=== PATIENT | male | born 2000 | race Two or more races ===

== ENCOUNTER 2024-08-01 05:00 | Emergency (ER) | payer MEDICAID, SELFPAY ==
[2024-08-01 05:01] VITALS: BMI 24.9
[2024-08-01 05:07] VITALS: BP 130/75; PULSE 78; RESP 17; TEMP 36.9; O2SAT 97
--- NOTE | 2024-08-01 05:18 | PD.EDRME ---
Rapid Medical Screening Exam RME Arrival date/time: 08/01/24 05:00 24M with no significant PMH presents to ED with 2 days of generalized itchy rash and R ear drum rupture (confirmed on exam). Patient denies new meds, foods, and hygiene products. Patient does work in the vit[employer], but denies working with chemicals or recent encounter with pesticides. There is also some facial swelling, but patient denies SOB and throat swelling. Chief Complaint: Ear Vital signs: Vital Signs Temperature 98.4 F 08/01/24 05:07 Pulse Rate 78 08/01/24 05:07 Respiratory Rate 17 08/01/24 05:07 Blood Pressure 130/75 08/01/24 05:07 Pulse Oximetry (%) 97 08/01/24 05:07 Oxygen Delivery Method Room Air 08/01/24 05:07
[2024-08-01] MEDS: DiphenhydrAMINE 25 MG CAPSULE PO (05:40)
[2024-08-01] MEDS: FAMOTIDINE 20 MG TABLET PO (05:40)
[2024-08-01] MEDS: DEXAMETHASONE SOD PHOS INJ 10 MG/ML VIAL PO (05:41)
[2024-08-01 06:25] LABS: Basophils % (Auto) 0 % (0-2.5); Eosinophils # (Auto) 0.1 Thou/mm3 (0.0-0.5); Eosinophils % (Auto) 1 % (0-10); Hematocrit 45.1 % (41.0-53.0); Hemoglobin 16.6 g/dL (13.5-16.0); Immature Granulocytes % (Auto) 0 % (0-0); Immature Granulocytes Auto 0.02 Thou/mm3 (0.00-0.00); Lymphocytes # (Auto) 1.8 Thou/mm3 (1.0-4.8); Lymphocytes % (Auto) 21 % (10-50); Mean Corpuscular HGB Conc 36.8 g/dl (31.0-37.0); Mean Corpuscular Hemoglobin 31.1 pg (25.0-35.0); Mean Corpuscular Volume 85 fL (80-100); Monocytes # (Auto) 0.4 Thou/mm3 (0.0-0.8); Monocytes % (Auto) 4 % (0-12); Neutrophils # (Auto) 6.5 Thou/mm3 (1.8-7.7); Neutrophils % (Auto) 74 % (37-80); Nucleated Red Blood Cell % 0 /100 WBC (0); Platelet Count 308 Thou/mm3 (140-440); RDW Standard Deviation 38.2 fL (35.1-43.9); Red Blood Count 5.34 Miln/mm3 (4.50-5.90); White Blood Count 8.7 Thou/mm3 (3.8-10.6)
[2024-08-01 06:50] LABS: Alanine Aminotransferase 20 U/L (10-49); Albumin, Serum 4.4 gm/dL (3.5-5.0); Albumin/Globulin Ratio 1.5 (1.2-2.2); Alkaline Phosphatase 107 U/L (46-116); Anion Gap 9 (7-16); Aspartate Amino Transferase 16 U/L (0-34); BUN/Creatinine Ratio 19 Ratio (12-20); Blood Urea Nitrogen 17 mg/dL (9-23); Calcium 9.3 mg/dL (8.3-10.6); Calcium (Corrected) 9.3 mg/dL (8.5-10.1); Chloride 104 mMol/L (98-107); Creatinine (Component) 0.9 mg/dL (0.6-1.3); Globulin 2.9 gm/dL (2.3-3.5); Glucose 137 mg/dL (74-106); Osmolality,Calculated 277 (275-295); Potassium 4.4 mMol/L (3.4-5.1); Sodium 137 mMol/L (136-145); Total Protein 7.3 gm/dL (5.7-8.2); eGFR > 60 See Note
--- NOTE | 2024-08-01 07:03 | PD.EDEAR ---
ED Ear RME/HPI General Chief complaint: Ear Stated complaint: R. EAR RUPTUR, SWELLING TO EYES AND HANDS Time Seen by Provider: 08/01/24 06:04 Source: patient Arrival date/time: 08/01/24 05:00 24-year-old male with no known medical history presents to the emergency room with a chief complaint of a generalized rash to his body. Patient also has a right eardrum rupture. Mode of arrival: ambulatory Limitations: no limitations RME / HPI RME / HPI Narrative: 08/01/24 05:00 24M with no significant PMH presents to ED with 2 days of generalized itchy rash and R ear drum rupture (confirmed on exam). Patient denies new meds, foods, and hygiene products. Patient does work in the [employer], but denies working with chemicals or recent encounter with pesticides. There is also some facial swelling, but patient denies SOB and throat swelling. Related Data Previous Rx's ?Medication ?Instructions ?Recorded tramadol 37.5 mg-acetaminophen 325 1 tab PO TID PRN pain #15 tabs 10/11/21 mg tablet (Ultracet) amoxicillin 875 mg-potassium 1 tab PO BID #20 tabs 02/19/22 clavulanate 125 mg tablet diphenhydramine HCl 25 mg capsule 25 mg PO TID PRN allergic reaction 08/01/24 #14 caps ofloxacin 0.3 % ear drops 5 drp otic (ear) QDAY 7 days #10 mL 08/01/24 Allergies Allergy/AdvReac Type Severity Reaction Status Date / Time No Known Allergies Allergy Verified 08/01/24 05:01 Review of Systems Review of Systems Systems Reviewed: All systems reviewed, normal except as documented Constitutional Constitutional: Reports system reviewed and no additional complaints, except as documented, Denies fatigue, Denies fever(s), Denies headache(s) and Denies weakness Eyes Eyes: Reports system reviewed and no additional complaints, except as documented, Denies blurry vision and Denies change in vision ENT Ears, Nose, Mouth, and Throat: Reports system reviewed and no additional complaints, except as documented, Reports ear discharge, Reports otalgia, Denies headache(s), Denies nasal congestion, Denies throat swelling and Denies vertigo Cardiovascular Cardiovascular: Reports system reviewed and no additional complaints, except as documented, Denies chest pain, Denies dyspnea and Denies dyspnea on exertion Respiratory Respiratory: Reports system reviewed and no additional complaints, except as documented, Denies chest congestion, Denies cough, Denies dyspnea, Denies dyspnea on exertion and Denies wheezing Gastrointestinal Gastrointestinal: Reports system reviewed and no additional complaints, except as documented, Denies abdominal pain, Denies cramping, Denies nausea and Denies vomiting Genitourinary Genitourinary: Reports system reviewed and no additional complaints, except as documented, Denies dysuria and Denies hematuria Musculoskeletal Musculoskeletal: Reports system reviewed and no additional complaints, except as documented and Denies back pain Integumentary/Breasts Skin/Breast: Reports system reviewed and no additional complaints, except as documented and Denies wounds Neurologic Neurologic: Reports system reviewed and no additional complaints, except as documented, Denies confusion, Denies headache(s), Denies lack of coordination, Denies vertigo and Denies weakness Psychiatric Psychiatric: Reports system reviewed and no additional complaints, except as documented, Denies anxiety, Denies confusion, Denies depression, Denies paranoia, Denies suicidal ideation and Denies tactile hallucinations Endocrine Endocrine: Reports system reviewed and no additional complaints, except as documented and Denies fatigue Hematologic/Lymphatic Hematologic/Lymphatic: Reports system reviewed and no additional complaints, except as documented and Denies lymphadenopathy Allergic/Immunologic Allergic/Immunologic: Reports system reviewed and no additional complaints, except as documented, Denies throat swelling, Reports urticaria and Denies wheezing ED Exam General Limitations: Present no limitations General appearance: Present alert and in no apparent distress Head Head exam: Present atraumatic Eye Eye exam: Present normal appearance, PERRL and EOMI ENT ENT exam: Present normal exam, normal oropharynx and mucous membranes moist Expanded ENT Exam External ear exam: Present pain with movement and external tenderness TM/Canal exam: Right TM: perforation, canal discharge and canal tenderness Neck Neck exam: Present normal inspection, full ROM and trachea midline Chest Chest inspection: Present normal inspection and symmetric chest wall rise Respiratory Respiratory exam: Present normal lung sounds bilaterally; Absent respiratory distress, wheezes, stridor, accessory muscle use or prolonged expiratory phase Cardiovascular Cardiovascular exam: Present regular rate, normal rhythm and normal heart sounds Abdominal Exam Abdominal exam: Present soft and normal bowel sounds Extremities Exam Extremities exam: Present normal inspection and full ROM Back Exam Back exam: Present normal inspection and full ROM Neurological Exam Neurological exam: Present alert, oriented X3 and CN II-XII intact Psychiatric Psychiatric exam: Present normal affect and normal mood Skin Skin exam: Present warm, dry, intact and normal color Course Quality Measures none Orders Category Date Time Status CBC Stat Lab 08/01/24 06:00 Completed CMP [Comprehensive Metabolic Panel] Stat Lab 08/01/24 06:00 Completed CRP [C-Reactive Protein] Stat Lab 08/01/24 06:00 Completed ESR [Sed Rate (ESR)] Stat Lab 08/01/24 06:00 Completed Dexamethasone Inj [Decadron Inj] Med 08/01/24 05:17 Discontinued 10 mg PO X1 ONE DiphenhydrAMINE [Benadryl] Med 08/01/24 05:17 Discontinued 25 mg PO X1 ONE Famotidine [Pepcid] Med 08/01/24 05:17 Discontinued 20 mg PO X1 ONE Vital Signs Vital signs: Vital Signs Temperature 98.4 F 08/01/24 05:07 Pulse Rate 78 08/01/24 05:07 Respiratory Rate 17 08/01/24 05:07 Blood Pressure 130/75 08/01/24 05:07 Pulse Oximetry (%) 97 08/01/24 05:07 Oxygen Delivery Method Room Air 08/01/24 05:07 O2 saturation 97% within normal limits Ear MDM Narrative MDM Narrative:: 24-year-old male with no known medical history presents to the emergency room with a chief complaint of a generalized rash to his body. Patient also has a right eardrum rupture. Patient is hemodynamically stable and in no apparent distress. He is afebrile nontachycardic nontachypneic. Lung sounds are clear bilaterally. There is a generalized rash to his torso and to his bilateral arms. After antihistamines patient states his symptoms have improved.. Patient has a ruptured right-sided tympanic membrane. Patient has some drainage in his right sided ear canal as well as tenderness. Patient states he has a history of right-sided ear problems and gets perforations about once a year. Antibiotics were given to the patient. Patient was educated to follow-up with his primary care provider for an ENT specialist for further management Patient was discharged and educated to follow-up with primary care provider in the next 24 to 48 hours and return to the emergency room for any evidence of worsening signs or symptoms Patient data External records reviewed:: [facility] previous records Clinical information provided by:: patient Social determinants that could affect healthcare access:: none Patient has the following chronic illnesses:: No chronic illness How is presenting disease/condition affected by chronic disease/condition?: no chronic disease Evaluation data The following diagnostics were reviewed and interpreted by me:: lab results and radiology exam(s) Lab and/or radiology exams considered but not ordered:: Labs and radiology exams considered and ordered Interpretation Summary: N/A Medications / Prescriptions Medications or Prescriptions considered but not ordered:: Medication given Medication administrations:: Medication Administration History Discontinued Medications Dexamethasone Sodium Phosphate (Dexamethasone Sod Phos Inj 10 Mg/Ml Vial) 10 mg PO X1 ONE Stop: 08/01/24 05:18 Last Admin: 08/01/24 05:41 Dose: 10 mg Documented By: BULL Diphenhydramine HCl (Diphenhydramine 25 Mg Capsule) 25 mg PO X1 ONE Stop: 08/01/24 05:18 Last Admin: 08/01/24 05:40 Dose: 25 mg Documented By: BULL Famotidine (Famotidine 20 Mg Tablet) 20 mg PO X1 ONE Stop: 08/01/24 05:18 Last Admin: 08/01/24 05:40 Dose: 20 mg Documented By: MC Medication given Consultations Consultation(s) initiated? (list below): No Diagnosis Ear Differential Diagnosis: otitis externa, otitis media, foreign body in ear and ruptured TM Most likely diagnosis given after review of the tests above:: Ruptured TM Admission Indicated Admission indicated?: not indicated Admission Request Was there a request for admission?: No Disposition Plan Disposition Plan: Discharge Discharge Attestation Discharge Attestation: The patient and all family members were given an opportunity to ask questions and understood the discharge instructions. Discharge instructions specifically effects, indications for sooner follow up or return to the emergency department, and the expected course of current diagnosis. Patient condition: Stable Medical Decision Making Lab Data 08/01/24 06:00 08/01/24 06:00 Labs: Lab Results 08/01/24 Range/Units 06:00 WBC 8.7 (3.8-10.6) Thou/mm3 RBC 5.34 (4.50-5.90) Miln/mm3 Hgb 16.6 H (13.5-16.0) g/dL Hct 45.1 (41.0-53.0) % MCV 85 (80-100) fL MCH 31.1 (25.0-35.0) pg MCHC 36.8 (31.0-37.0) g/dl RDW Std Deviation 38.2 (35.1-43.9) fL Plt Count 308 (140-440) Thou/mm3 Neut % (Auto) 74 (37-80) % Lymph % (Auto) 21 (10-50) % Maury % (Auto) 4 (0-12) % Eos % (Auto) 1 (0-10) % Baso % (Auto) 0 (0-2.5) % Neut # (Auto) 6.5 (1.8-7.7) Thou/mm3 Lymph # (Auto) 1.8 (1.0-4.8) Thou/mm3 Maury # (Auto) 0.4 (0.0-0.8) Thou/mm3 Eos # (Auto) 0.1 (0.0-0.5) Thou/mm3 Baso # (Auto) 0.0 (0.0-0.2) Thou/mm3 Immature Gran # (Auto) 0.02 H (0.00-0.00) Thou/mm3 Absolute Nucleated RBC 0.00 (0.00-0.00) Thou/mm3 Immature Gran % 0 (0-0) % Nucleated RBC % 0 (0) /100 WBC ESR 34 H (0-15) mm/hr Sodium 137 (136-145) mMol/L Potassium 4.4 (3.4-5.1) mMol/L Chloride 104 (98-107) mMol/L Carbon Dioxide 24.0 (20.0-31.0) mMol/L Anion Gap 9 (7-16) BUN 17 (9-23) mg/dL Creatinine 0.9 (0.6-1.3) mg/dL Estim Creat Clear Calc 106.0 (>60) mL/min eGFR > 60 (60 - ) See Note BUN/Creatinine Ratio 19 (12-20) Ratio Glucose 137 H (74-106) mg/dL Calculated Osmolality 277 (275-295) Calcium 9.3 (8.3-10.6) mg/dL Corrected Calcium 9.3 (8.5-10.1) mg/dL Total Bilirubin 1.0 (0.3-1.2) mg/dL AST 16 (0-34) U/L ALT 20 (10-49) U/L Alkaline Phosphatase 107 (46-116) U/L C-Reactive Prot, Quant 6.0 H (0.0-0.9) mg/dL Total Protein 7.3 (5.7-8.2) gm/dL Albumin 4.4 (3.5-5.0) gm/dL Globulin 2.9 (2.3-3.5) gm/dL Albumin/Globulin Ratio 1.5 (1.2-2.2) Discharge Plan Plan Patient Disposition: HOME (Self Care) Discharge Disposition comment: Stable Prescriptions/Referrals Prescriptions/Med Rec: New ofloxacin 0.3 % drops 5 drp otic (ear) QDAY 7 Days Qty: 10 0RF diphenhydramine HCl 25 mg capsule 25 mg PO TID PRN (Reason: allergic reaction) Qty: 14 0RF No Action tramadol-acetaminophen [Ultracet] 37.5-325 mg tablet 1 tab PO TID PRN (Reason: pain) Qty: 15 0RF amoxicillin-pot clavulanate 875-125 mg tablet 1 tab PO BID Qty: 20 0RF Referrals: Abraham Quintero MD [Primary Care Provider] - In 1 week Problem List Clinical Impression: Allergic reaction, Eardrum rupture Patient/Caregiver Discharge Instructions Education Materials: ED Ruptured Eardrum, Traumatic Additional Instructions: Por favor, consulte con espinosa m?dico de cabecera en las pr?ximas 24 a 40 horas. Se le enviar?n antibi?ticos a espinosa farmacia para aliviar espinosa perforaci?n timp?adilene. Se le enviar?n medicamentos a espinosa farmacia para aliviar los s?ntomas de espinosa reacci?n al?rgica. Ante cualquier signo de empeoramiento de los signos o s?ntomas, acuda a urgencias de inmediato. Print Language: Somali Stand Alone Forms: [employer] Award Info., Patient Portal Info Letter PA/SERVICE ATTENDANT CAFETERIA Supervising Physician PA/SERVICE ATTENDANT CAFETERIA Supervising Physician: Dr. Pruitt
[2024-08-01 07:25] LABS: Sed Rate (ESR) 34 mm/hr (0-15)
== END 2024-08-01 07:28 | disposition home or self-care (01) ==
PROVIDERS: Physician Assistant; Emergency Provider Emergency Medicine; PCP Family Medicine
DX: H72.91 Unspecified perforation of tympanic membrane, right ear (principal); T78.40XA Allergy, unspecified, initial encounter
CPT/HCPCS: 36415; 80053; 85025; 85652; 86140; 99283; J1100; A9270